=== PATIENT | female | born 1975 | race Caucasian/White ===

== ENCOUNTER → 2017-08-21 | Outpatient (CLI) | payer BC ==
--- NOTE | 2017-08-21 14:05 | Diagnostic Imaging Report ---
INDICATION: Routine screening. COMPARISON: 09/06/2012. TECHNIQUE: Screening digital mammography was performed bilaterally with a Computer Aided Detection (CAD) system. FINDINGS: Since the prior exam, the patient has had bilateral breast implants placed. The implant contours appear to be fairly smooth. The breast parenchyma is moderately heterogeneous and dense. No dominant mass or malignant appearing microcalcifications are seen. There are benign calcifications on the left. The axillae are unremarkable. IMPRESSION: No mammographic features suspicious for malignancy are identified. ACR BI-RADS Category 2: Benign findings. Result letter will be mailed to the patient. Note: At least 10% of breast cancer is not imaged by mammography. Dictated by: Dictated on workstation # [id number]
== END ==
LOC: RAD 08:39
PROVIDERS: ATTEND Obstetrics & Gynecology
DX: Z12.31 Encounter for screening mammogram for malignant neoplasm of breast (principal)
CPT/HCPCS: 77067

== ENCOUNTER → 2018-08-23 | Outpatient (CLI) | payer BC ==
--- NOTE | 2018-08-26 09:58 | Diagnostic Imaging Report ---
INDICATION: Screening. COMPARISON: 08/21/2017 and 09/06/2012. TECHNIQUE: 3D tomosynthesis was performed and reviewed with CAD. FINDINGS: There has been bilateral breast augmentation with implants. There are scattered fibroglandular densities bilaterally. There are a few benign type calcifications. There is no dominant mass, spiculated lesion, or suspicious calcification identified. The skin, nipples, and axillae are unremarkable. IMPRESSION: Benign findings as above. ACR BI-RADS Category 2: Benign findings. Result letter will be mailed to the patient. Note: At least 10% of breast cancer is not imaged by mammography. Dictated by: Dictated on workstation # [id number]
== END ==
LOC: RAD 14:48
PROVIDERS: ATTEND Obstetrics & Gynecology
DX: Z12.31 Encounter for screening mammogram for malignant neoplasm of breast (principal)
CPT/HCPCS: 77067

== ENCOUNTER → 2019-08-26 | Outpatient (CLI) | payer BC ==
--- NOTE | 2019-08-26 12:27 | Diagnostic Imaging Report ---
INDICATION: Routine screening. COMPARISON: Comparison is made with prior mammograms from 08/23/2018 and 08/21/2017. 2-D and 3-D bilateral screening mammography was performed. The current study was also evaluated with a Computer Aided Detection (CAD) system. 3-D tomosynthesis was also performed and reviewed. FINDINGS: Bilateral breast implants are noted. Implant contours appear to be stable. Both breasts are heterogeneously dense, limiting the sensitivity of mammography. There are benign calcifications. No mass or malignant-appearing microcalcifications are seen. Axillae are unremarkable. IMPRESSION: No mammographic features suspicious for malignancy are identified. ACR BI-RADS Category 2: Benign findings. Result letter will be mailed to the patient. Note: At least 10% of breast cancer is not imaged by mammography. Dictated by: Dictated on workstation # [id number]
== END ==
LOC: RAD 10:53
PROVIDERS: ATTEND Obstetrics & Gynecology
DX: Z12.31 Encounter for screening mammogram for malignant neoplasm of breast (principal)
CPT/HCPCS: 77067

== ENCOUNTER → 2020-09-24 | Outpatient (CLI) | payer BC, OTHER ==
--- NOTE | 2020-09-26 18:59 | Diagnostic Imaging Report ---
INDICATION: Screening. At this time there are no current complaints. EXAMINATION: Digital mammogram bilateral screening with CAD. 3D tomographic images were obtained and reviewed. The current study was also evaluated with a Computer Aided Detection (CAD) system. COMPARISON: This study was compared to the prior exams of 08/26/2019, 08/23/2018 and 08/21/2017. FINDINGS: There are bilateral breast implants in place. The implants seem to be intact and appear similar to the prior study. The fibroglandular tissue overlying the implants is heterogeneously dense. This does limit the sensitivity of this exam. Overall, there does not appear to have been any significant change. There is no primary or secondary sign of malignancy noted. IMPRESSION: 1. There is no evidence for malignancy. 2. The implants appear stable. There is no sign of an extracapsular rupture of either implant. ACR BI-RADS Category 1: Negative. Result letter will be mailed to the patient. Note: At least 10% of breast cancer is not imaged by mammography. Dictated by: Dictated on workstation # [id number]
== END ==
LOC: RAD 12:56
PROVIDERS: ATTEND Obstetrics & Gynecology
DX: Z12.31 Encounter for screening mammogram for malignant neoplasm of breast (principal)
CPT/HCPCS: 77063; 77067

== ENCOUNTER 2020-09-30 05:35 | Outpatient (CLI) | payer OTHER ==
[~2020-09-30] VITALS: Ht 167.6 cm; Wt 65.8 kg
[2020-09-30] MEDS ORDERED: FLUO20CA46 PO (12:19)
[2020-09-30] MEDS ORDERED: LORA10TA7 PO (12:19)
[2020-09-30] MEDS ORDERED: NORG1TAB14 PO (12:19)
[2020-09-30] MEDS ORDERED: PREN-142 PO (12:19)
[2020-09-30] MEDS ORDERED: MAGN400C PO (12:19)
== END 2020-09-30 13:43 | disposition home or self-care (01) ==
LOC: PREOP 05:35
PROVIDERS: ATTEND Internal Medicine
DX: Z01.818 Encounter for other preprocedural examination (principal)

== ENCOUNTER 2020-10-08 07:01 | Day surgery (SDC) | payer OTHER ==
--- NOTE | 2020-09-27 07:04 | HISTORY AND PHYSICAL ---
DATE OF SERVICE: COLONOSCOPY HISTORY AND PHYSICAL HISTORY OF PRESENT ILLNESS: The patient is a 45-year-old white female referred by Dr. Law for screening colonoscopy. She is deemed to be of higher than average risk as her father was diagnosed with colon cancer in his mid 50s. On her mother's side of the family, grandfather was diagnosed with colon cancer as well and her mother has a history of colon polyps. She denies abdominal pain, problems with diarrhea, constipation, any change in bowel habit and has noted no bright red blood per rectum or melena. Only medication is control pill. PAST MEDICAL HISTORY: Significant for endometriosis. She has not been a problem on control pills. PAST SURGICAL HISTORY: She had diagnostic laparoscopy for endometriosis in the past. Two C-sections, last one in 2006 and breast augmentation. FAMILY HISTORY: As noted in the HPI. 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 REVIEW OF SYSTEMS: CONSTITUTIONAL: She denies night sweats, chills, fever, change in weight. CARDIOVASCULAR: She denies chest pain, shortness of breath, orthopnea, PND or pedal edema. PULMONARY: She denies cough, wheezing or shortness of breath. GASTROINTESTINAL: As noted in the HPI. PHYSICAL EXAMINATION: GENERAL: Reveals a well-appearing white female in no acute distress. VITAL SIGNS: Weight 146 pounds, blood pressure 120/80. HEENT: Unremarkable. Sclerae nonicteric. CHEST: Clear to auscultation. CARDIOVASCULAR: Reveals a regular rate and rhythm without murmur, S3 or S4. ABDOMEN: Soft, supple without mass, organomegaly or tenderness. EXTREMITIES: Revealed no cyanosis, clubbing or edema. ASSESSMENT AND PLAN: The patient was set up on 10/08/2020 for her first screening colonoscopy, deemed to be of higher than average risk as father was diagnosed with colon cancer in his mid 50s and has a grandfather on the mother's side with colon cancer as well. Prep instructions with the Suprep kit were given and questions were answered. Job ID: [id number] DocumentID: [id number] Dictated Date: 09/21/2020 11:33:47 Crimping Machine Operator Date: 09/21/2020 11:45:22 Dictated By: LORENA PERDOMO MD
[~2020-10-08] VITALS: Ht 167.6 cm; Wt 65.8 kg
[~2020-10-08 07:01] MED LIST: FLUO20CA46 PO; LORA10TA7 PO; MAGN400C PO; NORG1TAB14 PO; PREN-142 PO
[2020-10-08] MEDS ORDERED: LACTATED RINGERS 1,000 ML IV ONE (07:10)
[2020-10-08] MEDS ORDERED: LACTATED RINGERS 1,000 ML IV STA (07:13)
[2020-10-08] MEDS ORDERED: LIDOCAINE JELLY 2% 6 ML SYRINGE MM PRN (07:15)
[2020-10-08] MEDS ORDERED: PROPOFOL INJECTION 50 ML IV ONE (07:17)
[2020-10-08] MEDS ORDERED: MIDAZOLAM 2 MG/2 ML (VERSED) VIAL ONE (07:17)
[2020-10-08 07:24] VITALS: BP 114/79
--- NOTE | 2020-10-08 07:59 | Pre-Op Note & Conscious Sedat ---
Pre-Operative Progress Note H&P Reviewed The H&P was reviewed, patient examined and no changes noted. Date H&P Reviewed: Oct 08, 2020 Time H&P Reviewed: 07:40 Conscious Sedation Pre-Proced ASA Score 1 For ASA 3 and 4: Consider anesthesia and medical clearance. Also, for patients with a history of failed moderate sedation consider anesthesia. Airway Lungs Heart ASA score ASA 1: a normal healthy patient ASA 2: a patient with a mild systemic disease (mid diabetes, controlled hypertension, obesity ASA 3: a patient with a severe systemic disease that limits activity (angina, COPD, prior Myocardial infarction) ASA 4: a patient with an incapacitating disease that is a constant threat to life (CHF, renal failure) ASA 5: a moribund patient not expected to survive 24 hrs. (ruptured aneurysm) ASA 6: a declared brain- patient whose organs are being harvested. For emergent operations, add the letter E after the classification Mallampati Classification Grade 2 Sedation Plan Analgesia, Amnesia, Plan communicated to team members, Discussed options with patient/fam, Discussed risks with patient/fam The patient is an appropriate candidate to undergo the planned procedure, sedation, and anesthesia. The patient immediately re-assessed prior to indication. LORENA PERDOMO MD Oct 08, 2020 07:59
[2020-10-08] MEDS ORDERED: PHENYLEPHRINE 100 MCG/ML 10 ML (ANESTHESIA) SYR ONE (08:01)
[2020-10-08 08:40] VITALS: BP 98/54
[2020-10-08 08:45] VITALS: BP 101/60
[2020-10-08 09:15] VITALS: BP 101/69
--- NOTE | 2020-10-08 09:39 | Anesthesia-General Post-Op ---
MAC Patient Condition Mental Status/LOC: Same as Preop Cardiovascular: Satisfactory Nausea/Vomiting: Absent Respiratory: Satisfactory Pain: Controlled Complications: Absent Post Op Complications Complications None Follow Up Care/Instructions Patient Instructions None needed. Anesthesiology Discharge Order Discharge Order Patient is doing well, no complaints, stable vital signs, no apparent adverse anesthesia problems. No complications reported per nursing. FLAQUITO GARCIA CRNA Oct 08, 2020 09:39
[2020-10-08 09:50] VITALS: BP 101/69
--- NOTE | 2020-10-08 19:28 | OPERATIVE REPORT ---
DATE OF SERVICE: 10/08/2020 COLONOSCOPY SUMMARY INDICATION FOR THE PROCEDURE: Screening colonoscopy early due to family history of colon cancer, index case being her father diagnosed in his 50s. DESCRIPTION OF PROCEDURE: The patient was placed in the left lateral decubitus position. Prior to undergoing colonoscopy, digital rectal evaluation was performed. Anal sphincter tone was normal and the perianal reflexes intact. The colonoscope was inserted into the rectum and under direct visualization advanced to cecum. The cecum was identified by identification of ileocecal valve, cecal strap. Quality of prep was good. The patient admitted. Procedure was done under Diprivan base anesthesia. FINDINGS: There was no evidence for internal or external hemorrhoids. Present in the mid rectum was a questionable diminutive polyp was photographed and biopsied and ablated with no subsequent blood loss. The remainder of the rectum, sigmoid colon, descending colon, transverse colon, ascending colon and cecum were unremarkable. ASSESSMENT: Questionable polyp removed from the mid rectum with an otherwise normal colonoscopy to the cecum. As long as there are no surprise on histopathology report, would advocate repeat surveillance colonoscopy in 5 years considering family history. I thank you for the referral of this pleasant lady. Job ID: [id number] DocumentID: [id number] Dictated Date: 10/08/2020 10:56:43 Insulator Tester Date: 10/08/2020 19:28:37 Dictated By: LORENA PERDOMO MD
== END 2020-10-08 09:50 | disposition home or self-care (01) ==
LOC: ENDO 07:01
PROVIDERS: ATTEND Internal Medicine
DX: Z12.11 Encounter for screening for malignant neoplasm of colon (principal); K63.89 Other specified diseases of intestine; Z88.1 Allergy status to other antibiotic agents; Z79.899 Other long term (current) drug therapy; Z80.0 Family history of malignant neoplasm of digestive organs
CPT/HCPCS: 84703; 88305

== ENCOUNTER → 2021-09-26 | Outpatient (CLI) | payer OTHER ==
[~2021-09-26] MED LIST changes: -FLUO20CA46 PO; +FLUO20CA48 PO
--- NOTE | 2021-09-26 16:03 | Diagnostic Imaging Report ---
INDICATION: Routine screening. COMPARISON is made with prior mammograms 09/24/2020 and 08/26/2019. 2-D and 3-D bilateral screening mammography was performed with CAD. Bilateral breast implants are again noted. Implant contours remain smooth. Both breasts are heterogeneously dense, limiting the sensitivity of mammography. Benign calcifications in the left breast appear stable. No mass or malignant-appearing microcalcifications are seen. The axillae are unremarkable. IMPRESSION: BI-RADS Category 2 No mammographic features suspicious for malignancy are identified. ACR BI-RADS Category 2: Benign findings. Result letter will be mailed to the patient. Note: At least 10% of breast cancer is not imaged by mammography. Dictated by: Dictated on workstation # [id number]
== END ==
LOC: RAD 14:45
PROVIDERS: ATTEND Obstetrics & Gynecology
DX: Z12.31 Encounter for screening mammogram for malignant neoplasm of breast (principal)
CPT/HCPCS: 77063; 77067

== ENCOUNTER → 2022-12-18 | Outpatient (CLI) | payer OTHER ==
--- NOTE | 2022-12-19 15:40 | Diagnostic Imaging Report ---
INDICATION: Routine screening. COMPARISON: Prior mammograms from 09/26/2021 and 09/24/2020. TECHNIQUE: 2D and 3D bilateral screening mammography was performed with CAD. FINDINGS: Bilateral breast implants are again noted. The implant contours remain stable. No definite evidence of extracapsular rupture is noted. Both breasts are heterogeneously dense, limiting the sensitivity of mammography. The parenchymal pattern is stable. Benign calcifications on the left are again noted. No mass or malignant-appearing microcalcifications are seen. The axillae are unremarkable. IMPRESSION: No mammographic features suspicious for malignancy are identified. ACR BI-RADS Category 2: Benign findings. Result letter will be mailed to the patient. Note: At least 10% of breast cancer is not imaged by mammography. Dictated by: Dictated on workstation # [id number]
== END ==
LOC: RAD 14:30
PROVIDERS: ATTEND Obstetrics & Gynecology
DX: Z12.31 Encounter for screening mammogram for malignant neoplasm of breast (principal); Z98.82 Breast implant status
CPT/HCPCS: 77063; 77067